=== PATIENT | female | born 1995 | race African-American/Black ===

== ENCOUNTER 2017-02-23 20:42 | Emergency (ER) | payer MEDICAID ==
[~2017-02-23] VITALS: Ht 160 cm; Wt 68.0 kg
[2017-02-23] MEDS ORDERED: SODIUM CHLORIDE 0.9% 1,000 ML IV ONE (23:45)
[2017-02-23] MEDS ORDERED: ACETAMINOPHEN 325MG TABLET PO STA (23:45)
[2017-02-24 00:17] LABS: EOSINOPHILS % 0.7 % (0.0-5.0); LYMPHOCYTES % 36.3 % (20.0-50.0); MEAN CORPUSCULAR HEMOGLOBIN 20.5 pg (28.0-32.0); MEAN CORPUSCULAR VOLUME 68.1 fL (81.0-99.0); MEAN PLATELET VOLUME 8.3 fl (7.4-10.4); MONOCYTES % 10.9 % (2.0-8.0); NEUTROPHILS % 51.1 % (40.0-76.0); PLATELET 292 x1000/uL (130-400); RED BLOOD CELL COUNT 2.82 mill/uL (4.2-5.4)
[2017-02-24 00:24] LABS: CHLORIDE 105 mEq/L (98-107)
[2017-02-24 00:25] LABS: HEMOGLOBIN. 5.8 g/dL (12.0-16.0)
[2017-02-24 00:26] LABS: HEMATOCRIT. 19.2 % (36.0-48.0)
[2017-02-24 00:32] LABS: CARBON DIOXIDE 25 mEq/L (21-32)
[2017-02-24 00:48] LABS: PLATELET ESTIMATE NORMAL
[2017-02-24 04:44] VITALS: BP 116/68
[2017-02-24] MEDS ORDERED: DOCU-150 PO (23:32)
[2017-02-24] MEDS ORDERED: FERR325T6 PO (23:32)
[2017-02-24] MEDS ORDERED: ACET-2178 PO (23:32)
== END 2017-02-24 04:48 | disposition home or self-care (01) ==
LOC: ER 22:55
DX: D64.9 Anemia, unspecified (principal); R51 Headache; R50.9 Fever, unspecified; N93.9 Abnormal uterine and vaginal bleeding, unspecified
CPT/HCPCS: 36415; 70450; 76856; 80048; 81025; 85025; 96360; 99285; J7030; Z7610